=== PATIENT | female | born 1985 | race Caucasian/White ===

== ENCOUNTER 2018-07-30 19:18 | Emergency (ER) | payer SELFPAY ==
[~2018-07-30] VITALS: Wt 62.2 kg
[~2018-07-30 19:18] MED LIST: BUSP10TA2 PO; METO-448 PO; OMEP20CA16 PO
[2018-07-30 19:46] VITALS: BP 136/76; PULSE 84; RESP 18
== END 2018-07-30 22:23 | disposition left against medical advice (07) ==
LOC: FTE 19:18
DX: Z53.21 Procedure and treatment not carried out due to patient leaving prior to being seen by health care provider (principal)